=== PATIENT | female | born 1975 | race African-American/Black ===

== ENCOUNTER 2018-09-14 17:23 | Emergency (ER) | payer MEDICAID, OTHER ==
[~2018-09-14] VITALS: Ht 154.9 cm; Wt 98.0 kg
[2018-09-14 21:42] LABS: CLARITY URINE CLEAR (CLEAR); COLOR URINE YELLOW (YELLOW); KETONES URINE NEGATIVE (NEGATIVE); LEUKOCYTE ESTERASE URINE NEGATIVE (NEGATIVE); NITRITE URINE NEGATIVE (NEGATIVE); OCCULT BLOOD URINE NEGATIVE (NEGATIVE); PROTEIN URINE NEGATIVE (NEGATIVE); SPECIFIC GRAVITY URINE 1.028 (1.005-1.030); UROBILINOGEN URINE 0.2 E.U./dL (0.2-1.0)
[2018-09-14 23:30] VITALS: BP 121/70
== END 2018-09-14 23:40 | disposition home or self-care (01) ==
LOC: ER 17:23
DX: J06.9 Acute upper respiratory infection, unspecified (principal); N92.6 Irregular menstruation, unspecified
CPT/HCPCS: 71045; 81003; 81025; 99284; Z7610